=== PATIENT | female | born 1975 | race Caucasian/White ===

== ENCOUNTER 2020-11-25 11:38 | Emergency (ER) | payer BC ==
[~2020-11-25] VITALS: Ht 157.5 cm; Wt 87.7 kg
--- NOTE | 2020-11-25 12:15 | NUR ---
PT IN ROOM FROM [facility]. STARTED PIV LABS DRAWN [facility]A SENT
[2020-11-25 12:52] LABS: ANION GAP 6 mmol/L (5-15); CHLORIDE 108 mmol/L (98-107)
[2020-11-25 12:53] LABS: CREATININE 0.85 mg/dL (0.55-1.02)
[2020-11-25 12:57] LABS: BASOPHILS % (AUTO) 1 % (0-1); EOSINOPHILS % (AUTO) 1 % (1-7); LYMPHOCYTES % (AUTO) 20 % (22-44); MD NO; MEAN CORPUSCULAR HEMOGLOBIN 31.2 pg (27.0-34.8); MEAN PLATELET VOLUME 8.1 fL (7.4-10.4); MONOCYTES % (AUTO) 8 % (2-9); NEUTROPHILS % (AUTO) 69 % (42-75); PLATELET COUNT 348 x10^3/uL (130-400); RED BLOOD COUNT 4.55 x10^6/uL (3.82-5.3); RED CELL DISTRIBUTION WIDTH 13.7 % (9.6-15.2)
[2020-11-25] MEDS ORDERED: SODIUM CHLORIDE 0.9% 1,000ML IVBOLUS ONE (13:00)
[2020-11-25] MEDS ORDERED: DIPHENHYDRAMINE 50 MG/ML, 1ML IVPush ONE (13:00)
[2020-11-25] MEDS ORDERED: METOCLOPRAMIDE 5 MG/ML, 2ML IVPush ONE (13:00)
--- NOTE | 2020-11-25 13:05 | NUR ---
pt in bed admin meds.
--- NOTE | 2020-11-25 13:56 | NUR ---
SPOKE WITH CT REGARDING PTS PLACE IN LINE AT CT. CT STATED THEY ARE COMING FOR HER NOW
--- NOTE | 2020-11-25 13:57 | NUR ---
PT TO CT
--- NOTE | 2020-11-25 14:41 | NUR ---
PT IN BED IV RUNNING
[2020-11-25] MEDS ORDERED: OMNIPAQUE 350 MG/ML, 100ML BOTTLE ONE (14:44)
[2020-11-25] MEDS ORDERED: DEXAMETHASONE 4 MG/ML, 1ML ONE (15:10)
[2020-11-25] MEDS ORDERED: KETOROLAC 30 MG/1 ML ONE (15:10)
[2020-11-25] MEDS ORDERED: DEXAMETHASONE 4 MG/ML, 1ML IVPush ONE (15:30)
[2020-11-25] MEDS ORDERED: KETOROLAC 30 MG/1 ML IVPush ONE (15:30)
--- NOTE | 2020-11-25 15:31 | NUR ---
PT IN BED, ADMIN MEDS
--- NOTE | 2020-11-25 16:40 | NUR ---
PT UP TO BR
[2020-11-25] MEDS ORDERED: LORazepam 2 MG/ML, 1ML IVPush ONE (17:00)
[2020-11-25] MEDS ORDERED: LORazepam 2 MG/ML, 1ML ONE (17:03)
--- NOTE | 2020-11-25 17:10 | NUR ---
ADMIN ANXITY MEDS
--- NOTE | 2020-11-25 17:56 | NUR ---
PT DOWN TO MRI
[2020-11-25 18:55] VITALS: BP 108/62
--- NOTE | 2020-11-25 19:08 | NUR ---
PT WALKED OUT SELF, STEADY GAIT WITH MOM. IF S&S WORSEN RETURN TO ER.
== END 2020-11-25 19:12 | disposition home or self-care (01) ==
LOC: ED 13:12
DX: G43.B1 Ophthalmoplegic migraine, intractable (principal); R94.02 Abnormal brain scan; H57.11 Ocular pain, right eye; R42 Dizziness and giddiness
CPT/HCPCS: 36415; 70450; 70496; 70498; 70551; 80048; 85025; 96361; 96374; 96375; 99285; J1100; J1200; J1885; J2060; J2765; J7030; Q9967

== ENCOUNTER 2020-11-29 15:33 | Emergency (ER) | payer BC ==
[~2020-11-29] VITALS: Ht 157.5 cm; Wt 87.9 kg
[~2020-11-29 15:33] MED LIST: GADOTERATE 10 MMOL/20 ML VIAL ONE
--- NOTE | 2020-11-29 15:44 | NUR ---
I WAS HERE JESSICA FOR DOUBLE & BLURRY VISION, DIZZINESS, NAUSEA AND WATERS. THEY DID AN MRI & CT - FOUND A SMALL MENINGIOMA. TOLD TO F/U WITH DR. SMYTH BUT HE WOULD NOT SEE HER W/O A REFERAL. NO CHANGES TO SYMPTOMS.
[2020-11-29] MEDS ORDERED: LORazepam 2 MG/ML, 1ML ONE (16:25)
[2020-11-29] MEDS ORDERED: SODIUM CHLORIDE FLUSH 10ML SYR IVF ONE (16:30)
[2020-11-29] MEDS ORDERED: LORazepam 2 MG/ML, 1ML IVPush ONE (16:30)
[2020-11-29 16:37] LABS: ALANINE AMINOTRANSFERASE 22 U/L (12-78); ALBUMIN 3.7 g/dL (3.4-5.0); ANION GAP 4 mmol/L (5-15); CALCIUM 8.5 mg/dL (8.5-10.1); CHLORIDE 110 mmol/L (98-107); CREATININE 0.75 mg/dL (0.55-1.02)
[2020-11-29 16:40] LABS: ALKALINE PHOSPHATASE 71 U/L (45-117); BILIRUBIN,TOTAL 0.2 mg/dL (0.2-1.0); TOTAL PROTEIN 7.3 g/dL (6.4-8.2)
--- NOTE | 2020-11-29 16:53 | NUR ---
PT IN BED WITH NO SIGNS OR SYMPTOMS OF ACUTE DSITRESS NOTED REPSIRATIONS EVEN AND UNLABORED OUT TO IMAGING WITH TECH TRANSPORTER.
[2020-11-29 17:02] LABS: SEDIMENTATION RATE 18 mm/hr (0-20)
--- NOTE | 2020-11-29 17:16 | NUR ---
PT BACK FROM IMAGING IN BED WITH NO SIGNS OR SYMPTOMS OF ACUTE DISTRESS NOTED RESPIRATIONS EVEN AND UNLABORED
[2020-11-29 17:53] VITALS: BP 99/64
[2020-11-29] MEDS ORDERED: ACETAMINOPHEN 325 MG TABLET ONE (18:28)
[2020-11-29] MEDS ORDERED: DIPHENHYDRAMINE 25 MG CAPSULE ONE (18:28)
[2020-11-29] MEDS ORDERED: ACETAMINOPHEN 325 MG TABLET PO ONE (18:30)
[2020-11-29] MEDS ORDERED: DIPHENHYDRAMINE 25 MG CAPSULE PO ONE (18:30)
[2020-12-01 14:46] LABS: ANA SCREEN NEGATIVE (Negative)
== END 2020-11-29 19:12 | disposition home or self-care (01) ==
LOC: ED 18:50
DX: R42 Dizziness and giddiness (principal); R51.9 Headache, unspecified; M54.2 Cervicalgia; H53.8 Other visual disturbances
CPT/HCPCS: 36415; 70544; 70548; 80053; 85651; 86038; 86140; 86592; 93005; 96374; 99285; A9575; J2060; Q0163